=== PATIENT | male | born 1960 | race Caucasian/White ===

== ENCOUNTER 2017-02-04 11:21 | Inpatient (IN) | payer OTHER ==
[~2017-02-04] VITALS: Ht 180.3 cm; Wt 112.3 kg
[~2017-02-04 11:21] MED LIST: BACITRACIN 50,000 UNIT ONE; BACITRACIN OINT 500U/GM, 15 GM ONE; BUPIVACAINE/PF-EPI 0.25% 1:200K ONE; THROMBIN 20,000 UNIT VIAL TP ONE
[2017-02-04] MEDS ORDERED: LIDOCAINE 1%, 2ML ONE (12:31)
[2017-02-04] MEDS ORDERED: TRAM50TA2 PO (12:32)
[2017-02-04] MEDS ORDERED: amlodipine PO (12:32)
[2017-02-04] MEDS ORDERED: METF500T4 PO (12:32)
[2017-02-04] MEDS ORDERED: CARV-39 PO (12:32)
[2017-02-04] MEDS ORDERED: HYDR-3240 PO (12:32)
[2017-02-04 12:35] VITALS: BP 161/99
[2017-02-04] MEDS ORDERED: LACTATED RINGERS 1,000 ML IV SCH (12:49)
[2017-02-04] MEDS ORDERED: LIDOCAINE 1%, 2ML SQ PRN (13:00)
[2017-02-04] MEDS ORDERED: FENTANYL PF 250 MCG/5ML ONE (13:07)
[2017-02-04] MEDS ORDERED: MIDAZOLAM 1 MG/ML, 2ML ONE (13:07)
[2017-02-04] MEDS ORDERED: CEFAZOLIN 1,000 MG ONE (13:52)
[2017-02-04] MEDS ORDERED: NEOSTIGMINE 1 MG/ML, 10ML ONE (13:52)
[2017-02-04] MEDS ORDERED: PROPOFOL 10 MG/ML, 20ML ONE (13:52)
[2017-02-04] MEDS ORDERED: ROCURONIUM 10 MG/ML ONE (13:52)
[2017-02-04] MEDS ORDERED: ONDANSETRON 2MG/ML, 2ML ONE (13:52)
[2017-02-04] MEDS ORDERED: GLYCOPYRROLATE 0.2MG/1ML ONE (13:52)
[2017-02-04] MEDS ORDERED: SUCCINYLCHOLINE 20 MG/ML, 10ML ONE (13:52)
[2017-02-04] MEDS ORDERED: PROPOFOL 10 MG/ML, 50ML ONE (13:52)
[2017-02-04] MEDS ORDERED: EPHEDRINE 50 MG/ML, 1ML IVPush PRN (15:00)
[2017-02-04] MEDS ORDERED: ACETAMINOPHEN 325 MG TABLET PO PRN (15:00)
[2017-02-04] MEDS ORDERED: PROMETHAZINE 25 MG/ML, 1ML IV PRN (15:00)
[2017-02-04] MEDS ORDERED: MEPERIDINE/PF 25MG/0.5ML IVPush PRN (15:00)
[2017-02-04] MEDS ORDERED: LABETALOL 5MG/ML, 20ML IV PRN (15:00)
[2017-02-04] MEDS ORDERED: hydrALAzine 20 MG/ML, 1ML IV PRN (15:00)
[2017-02-04] MEDS ORDERED: ONDANSETRON 2MG/ML, 2ML IVPush PRN (15:00)
[2017-02-04] MEDS ORDERED: ALBUTEROL SULFATE 2.5 MG/3 ML NPPB PRN (15:00)
[2017-02-04] MEDS ORDERED: METOPROLOL 1 MG/ML, 5ML IV PRN (15:00)
[2017-02-04] MEDS ORDERED: HYDROmorphone 1 MG/ML, 1ML IV PRN (15:00)
[2017-02-04] MEDS ORDERED: OXYcodone 5 MG/5 ML ORAL.SOL UDC PO PRN (15:00)
[2017-02-04] MEDS ORDERED: MIDAZOLAM 1 MG/ML, 2ML IV PRN (15:00)
[2017-02-04] MEDS ORDERED: MEPERIDINE/PF 25MG/0.5ML ONE (15:51)
[2017-02-04] MEDS ORDERED: OXYcodone 5 MG/5 ML ORAL.SOL UDC ONE (15:51)
[2017-02-04] MEDS: FENTANYL PF 100 MCG/2ML IV PRN ×2 (16:04→16:20)
[2017-02-04] MEDS ORDERED: FENTANYL PF 100 MCG/2ML ONE (16:11)
[2017-02-04] MEDS ORDERED: MAGNESIUM HYDROXIDE 8%, 30ML UDC PO PRN (19:00)
[2017-02-04] MEDS ORDERED: DIPHENHYDRAMINE 50 MG/ML, 1ML IM PRN (19:00)
[2017-02-04] MEDS ORDERED: CYCLOBENZAPRINE 10 MG TABLET PO PRN (19:00)
[2017-02-04] MEDS ORDERED: BISACODYL 10 MG SUPP PR PRN (19:00)
[2017-02-04] MEDS ORDERED: HYDROmorphone 2MG TABLET PO PRN (19:00)
[2017-02-04] MEDS ORDERED: ONDANSETRON 2MG/ML, 2ML IV PRN (19:00)
[2017-02-04] MEDS ORDERED: HYDROmorphone 2 MG/ML, 1ML IM PRN (19:00)
[2017-02-04] MEDS ORDERED: DIPHENHYDRAMINE 50 MG/ML, 1ML IVPush PRN (19:00)
[2017-02-04] MEDS ORDERED: DIPHENHYDRAMINE 50 MG CAPSULE PO PRN (19:00)
[2017-02-04] MEDS ORDERED: OXYcodone/APAP 5/325MG TABLET PO PRN (19:00)
[2017-02-04] MEDS: HYDROcodone/APAP 10/325 MG TABLET PO PRN (19:44)
[2017-02-04 20:00] VITALS: BP 130/68
[2017-02-04] MEDS: CARVEDILOL 25 MG TABLET PO SCH (20:05)
[2017-02-04] MEDS: INSULIN REGULAR 100 UNITS/ML, 3ML VIAL SQ-INSULIN SCH (20:05)
[2017-02-04] MEDS: NS + 20MEQ KCL 1,000 ML IV SCH (20:05)
[2017-02-04] MEDS: CEFAZOLIN PMX 2GM/50ML 50 ML IVPB SCH (22:29)
[2017-02-05 00:01] VITALS: BP 126/77
[2017-02-05 03:42] VITALS: BP 129/78
[2017-02-05] MEDS: HYDROcodone/APAP 10/325 MG TABLET PO PRN ×2 (05:51→11:39)
[2017-02-05] MEDS: CEFAZOLIN PMX 2GM/50ML 50 ML IVPB SCH (05:54)
[2017-02-05] MEDS: CARVEDILOL 25 MG TABLET PO SCH (06:02)
[2017-02-05 06:04] VITALS: BP 153/92
[2017-02-05] MEDS: NS + 20MEQ KCL 1,000 ML IV SCH (07:03)
[2017-02-05] MEDS: INSULIN REGULAR 100 UNITS/ML, 3ML VIAL SQ-INSULIN SCH ×2 (07:41→11:00)
[2017-02-05] MEDS ORDERED: SENNA/DOCUSATE TABLET PO SCH (09:00)
[2017-02-05 11:37] VITALS: BP 160/94
[2017-02-05 12:00] VITALS: BP 159/89
[2017-02-05] MEDS ORDERED: HYDR-3240 PO (13:52)
[2017-02-05] MEDS ORDERED: TRAM50TA2 PO (13:53)
[2017-02-05] MEDS ORDERED: METH750T87 PO (13:54)
== END 2017-02-05 14:04 | disposition home or self-care (01) | DRG 517 ==
LOC: ORIP 11:21 → EDSTATUS 13:30 → 4NOR 17:32 → DCLOUNGE 02-05 13:40
PROVIDERS: ADMIT Neurological Surgery; ATTEND Neurological Surgery
PROC: 4A11X4G Monitoring of Peripheral Nervous Electrical Activity, Intraoperative, External Approach (ICD-10-PCS; 2017-02-04)
PROC: 01NR0ZZ Release Sacral Nerve, Open Approach (ICD-10-PCS; 2017-02-04)
PROC: 01NB0ZZ Release Lumbar Nerve, Open Approach (ICD-10-PCS; principal; 2017-02-04 14:00)
DX: M48.07 Spinal stenosis, lumbosacral region (principal); M54.17 Radiculopathy, lumbosacral region; I10 Essential (primary) hypertension; E11.9 Type 2 diabetes mellitus without complications; G25.81 Restless legs syndrome; Z80.9 Family history of malignant neoplasm, unspecified; Z83.3 Family history of diabetes mellitus; Z82.61 Family history of arthritis; Z82.5 Family history of asthma and other chronic lower respiratory diseases; Z88.5 Allergy status to narcotic agent; M48.06 Spinal stenosis, lumbar region; M54.16 Radiculopathy, lumbar region
CPT/HCPCS: 72100; 82962; J0690; J2175; J2250; J2405; J2704; J2710; J3010; J3480; J3490; J0330; J7120